=== PATIENT | female | born 1970 | race Caucasian/White ===

== ENCOUNTER 2016-08-17 17:47 | Emergency (ER) | payer BC ==
--- NOTE | ~2016-08-17 | CT2 ---
[facility] A Service of [facility] RADIOLOGY TEXT RESULTS PATIENT: CARMEN SHARP LOCATION: [facility] : 72 UNIT #: [id number] AGE: [address]: Dee Tompkins MD SEX: F ORDER DR: [id number] [place], [place] [address] [id number] MR#: [id number] Acc #: [id number] NAME: CARMEN SHARP : 1970 SEX: F STUDY DATE/TIME: 08/17/2016 20:47 UNIT: [facility] ROOM: STUDY DESCRIPTION: CT Abd and Pelv W Cont Attending Physician: Dee Tompkins M.D. Ordering Physician: Dee Tompkins M.D. Primary Care Physician: Mark Ford M.D. MEDICAL IMAGING REPORT This report is preliminary unless electronic signature is present EXAM CT abdomen and pelvis with contrast INDICATIONS Generalized abdominal pain for the past 2 days. PROCEDURE Contrast-enhanced CT of the abdomen and pelvis. This CT exam was performed with one or more of the following radiation dose reduction techniques: Automatic exposure control, adjustment of mA and/or kV according to patient size, and iterative reconstruction. COMPARISON 10/16/2012 FINDINGS ABDOMEN WITH CONTRAST: Included lung bases are clear. Liver enlarged measuring 21.3 cm. Likely hepatic steatosis. The spleen, kidneys, adrenal glands, pancreas, gallbladder unremarkable. The bowel loops are nondilated. Appendix nondilated. PELVIS WITH CONTRAST: Previous hysterectomy. There is a trace amount of fluid in the pelvis, nonspecific but may be physiologic. No aggressive appearing bone lesion. IMPRESSION 1. Hepatomegaly with probable steatosis. 2. No clearly acute finding in the abdomen or pelvis. Dictated by... Cezar Leonard M.D. [facility] A Service of [facility] RADIOLOGY TEXT RESULTS PATIENT: CARMEN SHARP LOCATION: [facility] : 72 UNIT #: [id number] AGE: [address]: Dee Tompkins MD SEX: F ORDER DR: THIS IS AN ELECTRONICALLY VERIFIED REPORT Cezar Leonard M.D. at 08/18/2016 9:31 AM EED/jay TD: 08/17/2016 22:50 JOB #: [id number] MEDICAL IMAGING REPORT Page 1 of 1 COPY
[~2016-08-17 17:47] MED LIST: ALLEGRA ALLERGY60 MG PO; ALLERGY25 MG PO; BENADRYL25 M1 PO; CLARITIN10 M1 PO; EPIPEN0.3 MG/0.1 IM; ESTRACE PO; ESTRACE2 M1 PO; FAMOTIDINE PO; FERRO-TIME325 MG PO; FLEXERIL10 M1 PO; IBUPROFEN100 MG PO; MEDROL PO; PREDNISONE PO; ULTRAM PO
[2016-08-17 18:30] LABS: URINE SOURCE CLEAN CATCH
[2016-08-17 18:38] LABS: URINE APPEARANCE CLEAR; URINE BILIRUBIN NEG (NEG); URINE BLOOD 1+ (NEG); URINE COLOR YELLOW; URINE GLUCOSE NEG (NEG); URINE KETONE NEG (NEG); URINE LEUKOCYTE ESTERASE TRACE (NEG); URINE NITRATE NEG (NEG); URINE PH 6.5 (5-8); URINE PROTEIN NEG (NEG); URINE SPECIFIC GRAVITY 1.019 (1.003-1.035); URINE UROBILINOGEN 0.2 MG/DL (NEG)
[2016-08-17 18:41] LABS: CULTURE INDICATED? YES; URINE BACTERIA AUWI 1+ (NEGATIVE); URINE SQUAMOUS EPITHELIAL CELL FEW /[HPF]
[2016-08-17 18:42] LABS: BASOPHIL% 0.6 % (0-2.5); EOSINOPHIL# 0.2 X10e3 (0-0.7); EOSINOPHIL% 3.1 % (0.0-7.0); HEMATOCRIT 42.3 % (35.0-45.0); HEMOGLOBIN 13.8 gm/dL (12.0-16.0); LYMPHOCYTE# 3.3 X10e3 (1.0-3.5); LYMPHOCYTE% 46.1 % (17.0-45.0); MEAN CELL VOLUME 91.5 FL (83-96); MEAN CORPUSCULAR HEMOGLOBIN 29.9 PG (28-34); MEAN CORPUSCULAR HGB CONC 32.7 g/dL (30-36); MEAN PLATELET VOLUME 8.2 FL (6.5-11.5); MONOCYTE# 0.6 X10e3 (0-1.0); MONOCYTE% 7.7 % (3.0-12.0); NEUTROPHIL# 3.1 X10e3 (1.5-7.1); NEUTROPHIL% 42.5 % (40-75); PLATELET COUNT 262 X10e3 (140-420); RED BLOOD COUNT 4.62 X10e (3.90-5.30); WHITE BLOOD COUNT 7.2 X10e3 (4.0-10.5)
[2016-08-17 18:46] LABS: DIFF IND NO
[2016-08-17 18:50] LABS: AMPHETAMINE NEG (NEG); BARBITURATES NEG (NEG); BENZODIAZEPINES NEG (NEG); COCAINE NEG (NEG); MARIJUANA NEG (NEG); OPIATES NEG (NEG); TRICYCLIC ANTIDEPRESSANTS NEG (NEG); U METHADONE NEG (NEG)
[2016-08-17 18:59] LABS: ALBUMIN SERUM 4.3 g/dL (3.5-5.0); ALKALINE PHOSPHATASE 75 U/L (32-92); ALT (SGPT) 26 U/L (10-40); AMYLASE 24 U/L (0-46); AST (SGOT) 22 U/L (10-42); BILIRUBIN,TOTAL 0.5 mg/dL (0.2-2.0); BLOOD UREA NITROGEN 8 mg/dL (9-23); BUN/CREATININE RATIO 11.42; CALCIUM SERUM 8.8 mg/dL (8.4-10.2); CARBON DIOXIDE 27 mmol/L (22-31); CHLORIDE 105 mmol/L (100-111); CREATININE SERUM 0.7 mg/dL (0.6-1.4); GLOM FILT RATE Estimated 105.4 mL/min (>60); GLUCOSE FASTING 92 mg/dL (70-110); LIPASE 34 U/L (22-51); POTASSIUM 3.6 mmol/L (3.5-5.1); PROTEIN TOTAL SERUM 7.3 g/dL (6.0-8.3); SODIUM 137 mmol/L (135-145)
[2016-08-17 19:00] LABS: BILIRUBIN, DIRECT <0.1 mg/dL (0.0-0.2); BILIRUBIN,INDIRECT 0.4 mg/dL (0.0-0.9)
== END 2016-08-17 22:16 | disposition home or self-care (01) ==
LOC: CED 17:47
PROVIDERS: Student in an Organized Health Care Education/Training Program
DX: R10.31 Right lower quadrant pain (principal); R10.12 Left upper quadrant pain; R10.11 Right upper quadrant pain; Z90.710 Acquired absence of both cervix and uterus; F17.210 Nicotine dependence, cigarettes, uncomplicated; Z79.899 Other long term (current) drug therapy; Z88.8 Allergy status to other drugs, medicaments and biological substances
CPT/HCPCS: 74177; 80048; 80076; 80307; 81003; 82150; 83690; 85025; 87086; 96374; 96375; 99284; J2270; J2405; Q9967